=== PATIENT | female | born 1995 | race Caucasian/White ===

== ENCOUNTER → 2017-05-28 | Outpatient (CLI) | payer BC ==
[2017-05-28 16:01] LABS: HEMATOCRIT 39.7 % (37-47); MEAN CELL VOLUME 89.4 fL (80-100); MEAN CORPUSCULAR HGB CONC 33.5 g/dl (32-36); MEAN PLATELET VOLUME 10.5 fL (7.4-10.4); PLATELET COUNT 292 K/uL (130-400); RED BLOOD COUNT 4.44 M/uL (4.2-5.4); WHITE BLOOD COUNT 9.53 K/uL (4.8-10.8)
[2017-05-28 17:05] LABS: ALT/SGPT 26 U/L (12-78); AMYLASE 88 U/L (25-115); AST/SGOT 16 U/L (15-37); BLOOD UREA NITROGEN 12 mg/dl (7-18); BUN/CREATININE RATIO 15.9 (10-20); CALCIUM 8.9 mg/dl (8.5-10.1); CARBON DIOXIDE 27 mmol/L (21-32); CHLORIDE 104 mmol/L (98-107); CREATININE 0.77 mg/dl (0.60-1.20); GLUCOSE 78 mg/dl (70-99); POTASSIUM 3.7 mmol/L (3.5-5.1); SODIUM 137 mmol/L (136-145)
[2017-05-28 17:16] LABS: ALB/GLOB RATIO 0.9 (0.9-2); ALKALINE PHOSPHATASE 58 U/L (45-117)
[2017-05-30 14:20] LABS: AFP TUMOR MARKER SERUM 1.3 NG/ML (<6.1)
== END | disposition home or self-care (01) ==
LOC: C.LAB1850 14:35
PROVIDERS: ATTEND Obstetrics & Gynecology
DX: R18.8 Other ascites (principal)

== ENCOUNTER → 2017-05-30 | Day surgery (SDC) | payer BC ==
[~2017-05-30] VITALS: Ht 157.5 cm; Wt 68.0 kg
[2017-05-30 12:17] VITALS: BP 138/83; PULSE 81; TEMP 36.9; O2SAT 100; Ht 157.5 cm; Wt 68.0 kg
[2017-05-30 12:47] LABS: INR 1.1 (0.9-1.1); PTT PATIENT 27.5 SECONDS (21.0-31.0)
[2017-05-30 13:45] VITALS: BP 119/58; PULSE 58; TEMP 36.6; O2SAT 97
--- NOTE | 2017-05-30 13:58 | DIAGNOSTIC IMAGING REPORT ---
ULTRASOUND TO ASSESS FOR ASCITES CLINICAL HISTORY: Fluid in abdomen. COMPARISON STUDY: CT of the abdomen and pelvis December 14, 2005. FINDINGS: The patient presented today for possible paracentesis. Sonography revealed a small amount of fluid within the pelvis, predominantly within the adnexa. However, there was no fluid within the abdomen. No suitable window was identified for paracentesis. IMPRESSION: Fluid within the pelvis. However, no fluid within the abdomen. Overall, small amount of ascites. Given lack of suitable window, no paracentesis was performed. Findings discussed with Dr. Mccray at time of dictation. Electronically signed by: Yoni Chakraborty M.D. 05/30/2017 1:56 PM Dictated Date/Time: 05/30/2017 1:47 PM
== END | disposition home or self-care (01) ==
LOC: C.ACU 11:47
PROVIDERS: ATTEND Internal Medicine
DX: R18.8 Other ascites (principal)